=== PATIENT | male | born 1950 | race Caucasian/White ===

== ENCOUNTER 2021-09-10 17:24 | Emergency (ER) | payer OTHER, SELFPAY ==
[2021-09-10 18:02] LABS: #Basophils 0.1 thou/uL (0.0-0.2); #Monocytes 0.8 thou/uL (0.11-0.59); #Neutrophils 9.6 thou/uL (1.40-6.50); %Basophils 1.2 % (0.0-1.0); %Eosinophils 0.1 % (0.0-10.0); %Lymphocytes 8.6 % (21.0-51.0); %Monocytes 6.8 % (0.0-10.0); %Neutrophils 83.3 % (42.0-75.0); Hemoglobin 15.3 g/dL (14.0-18.0); Mean Corpuscular HGB CONC 32.3 g/dL (32.0-36.0); Mean Corpuscular Hemoglobin 29.9 pg (27.0-31.0); Mean Corpuscular Volume 92.5 fL (78.0-98.0); Mean Platelet Volume 6.4 fL (7.4-10.4); Platelet Count 399 thou/uL (130-400); RBC Distribution Width 13.2 % (11.5-14.5); Red Blood Cell (RBC) Count 5.11 mill/uL (4.70-6.10); White Blood Cell (WBC) Count 11.5 thou/uL (4.8-10.8)
[2021-09-10] MEDS ORDERED: Sodium Chloride 0.9% 1,000 ML ONE ×2 (18:03→18:39)
[2021-09-10] MEDS ORDERED: Boostrix 0.5 ML (Tdap) VIAL ONE (18:03)
[2021-09-10] MEDS ORDERED: Bacitracin 1 PK ONE (18:03)
[2021-09-10 18:16] LABS: ALT (SGPT) 20 U/L (8-55); AST (SGOT) 52 U/L (5-34); Acetaminophen Less than 6.0 mcg/mL (10.0-30.0); Albumin 4.2 g/dL (3.4-4.8); Alcohol Less than 10 mg/dL (Less than 10); Alkaline Phosphatase 98 U/L (40-110); Anion Gap 20 mmol/L (10-20); BUN (Urea Nitrogen) 24 mg/dL (8.4-25.7); Bilirubin, Total 1.1 mg/dL (0.2-1.2); CK (CPK) 1170 U/L (30-200); Calc. Creatinine Clearance 0 mL/min (70-130); Calcium 9.4 mg/dL (7.8-10.44); Carbon Dioxide 29 mmol/L (23-31); Chloride 97 mmol/L (98-107); Globulin 2.8 g/dL (2.4-3.5); Glucose 146 mg/dL (83-110); Lipase 48 U/L (8-78); Potassium 3.3 mmol/L (3.5-5.1); Salicylate Less than 8.0 mg/dL (15.0-30.0); Sodium 143 mmol/L (136-145)
[2021-09-10] MEDS ORDERED: Cefepime 2 GM VIAL ONE (18:39)
[2021-09-10] MEDS ORDERED: Sodium Chloride 0.9% 100 ML ONE (18:39)
[2021-09-10] MEDS ORDERED: Aspirin Chewable 81 MG TAB ONE (18:39)
[2021-09-10] MEDS ORDERED: Sodium Chloride 0.9% 500 ML ONE (19:19)
[2021-09-10] MEDS ORDERED: Vancomycin HCl 750 MG VIAL ONE (19:19)
[2021-09-10 19:30] LABS: CKMB 49.2 ng/mL (0-6.6)
[2021-09-10 19:52] LABS: SARS-CoV-2 NAA Rapid Test Not Detected (NotDetected)
[2021-09-10 20:33] LABS: Bilirubin Negative (Negative); Blood, Urine Negative (Negative); Clarity Clear (Clear); Glucose, Urine (Dipstick) Negative (Negative); Ketone, Urine Trace mg/dL (Negative); Leukocyte Negative (Negative); Nitrite Negative (Negative); Protein, Urine (Dipstick) Negative (Neg-Trace)
[2021-09-10 20:43] LABS: Amphetamine Not Detected (NotDetected); Barbiturates Screen Not Detected (NotDetected); Benzodiazepine Screen Not Detected (NotDetected); Cocaine Metabolite Screen Not Detected (NotDetected); Medtox Control Line Valid? VALID (VALID); Methadone Not Detected (NotDetected); Methamphetamine Not Detected (NotDetected); Opiate Screen Not Detected (NotDetected); Oxycodone Screen Not Detected (NotDetected); Phencyclidine (PCP) Not Detected (NotDetected); THC/Cannabinoid Screen Not Detected (NotDetected); Tricyclic Screen Not Detected (NotDetected)
[2021-09-10 20:56] LABS: Lactic Acid 1.2 mmol/L (0.5-2.2)
== END 2021-09-10 20:52 | disposition short-term general hospital (02) ==
LOC: NAV ERS 17:24
DX: S50.811A Abrasion of right forearm, initial encounter (principal); G93.41 Metabolic encephalopathy; R79.89 Other specified abnormal findings of blood chemistry; M62.82 Rhabdomyolysis; F17.210 Nicotine dependence, cigarettes, uncomplicated; I10 Essential (primary) hypertension; W01.0XXA Fall on same level from slipping, tripping and stumbling without subsequent striking against object, initial encounter
CPT/HCPCS: 70450; 71045; 80053; 80306; 80307; 81003; 82550; 82553; 83605; 83690; 84443; 84484; 85025; 90471; 90715; 96365; 96366; 96367; J0692; J3370; J3490; J7030; J7050; U0002

== ENCOUNTER 2024-01-25 14:21 | Emergency (ER) | payer MEDICARE, OTHER | END 2024-01-25 17:10 | LOC: NAV ERS 14:21 | DX: S00.93XA Contusion of unspecified part of head, initial encounter (principal); I13.0 Hypertensive heart and chronic kidney disease with heart failure and stage 1 through stage 4 chronic kidney disease, or unspecified chronic kidney disease; E11.22 Type 2 diabetes mellitus with diabetic chronic kidney disease; N18.30 Chronic kidney disease, stage 3 unspecified; I50.9 Heart failure, unspecified; E78.5 Hyperlipidemia, unspecified; K21.9 Gastro-esophageal reflux disease without esophagitis; F17.210 Nicotine dependence, cigarettes, uncomplicated; W19.XXXA Unspecified fall, initial encounter; Z79.899 Other long term (current) drug therapy | CPT/HCPCS: 70450 ==